=== PATIENT | male | born 1975 | race Caucasian/White ===

== ENCOUNTER 2018-01-10 23:03 | Emergency (ER) | payer OTHER ==
[~2018-01-10] VITALS: Ht 172.7 cm; Wt 77.1 kg
[~2018-01-10 23:03] MED LIST: ADDERALL XR 2525 MG; CIALIS5 MG; CILOXAN5 ML OPHTHALMIC
[2018-01-10] MEDS ORDERED: KLONOPIN0.5 MG PO (23:17)
[2018-01-10 23:18] LABS: URINE BILIRUBIN NEGATIVE (Negative); URINE BLOOD NEGATIVE (Negative); URINE CLARITY CLEAR; URINE COLOR YELLOW; URINE GLUCOSE-RANDOM NEGATIVE (Negative); URINE KETONES NEGATIVE (Negative); URINE LEUKOCYTES-REFLEX NEGATIVE (Negative); URINE NITRITE-REFLEX NEGATIVE (Negative); URINE PROTEIN NEGATIVE (Negative); URINE UROBILINOGEN 0.2 E.U./dl (0.2-1.0)
[2018-01-10 23:21] LABS: ABSOLUTE BASOPHILS 0.1 thou/uL (0.0-0.2); ABSOLUTE EOSINOPHILS 0.1 thou/uL (0.0-0.7); ABSOLUTE LYMPHOCYTES 3.8 thou/uL (0.8-5.3); ABSOLUTE MONOCYTES 0.8 thou/uL (0.0-1.2); HEMATOCRIT 46.5 % (42.0-52.0); HEMOGLOBIN 15.1 gm/dL (14.0-18.0); LYMPHOCYTES 32.1 %; MCH 26.1 pg (26.0-34.0); MCHC 32.6 g/dL (28.0-37.0); MCV 80.1 fL (80.0-100.0); MONOCYTES 6.6 %; MPV 8.3 fl. (7.2-11.1); NUCLEATED RBCS 0 /100WBC; PLATELET COUNT* 285 thou/uL (150-400); POLYS 59.3 %; RDW-CV 13.9 % (10.5-14.5); WBC 11.9 thou/uL (4.0-11.0)
[2018-01-10 23:27] LABS: AMP/METHAMP Negative (Negative); BARBITURATES Negative (Negative); BENZODIAZEPINES Negative (Negative); COCAINE Negative (Negative); METHADONE Negative (Negative); OPIATES Negative (Negative); PCP Negative (Negative); THC Negative (Negative)
[2018-01-10 23:30] LABS: CALCIUM 8.4 mg/dL (8.5-10.1); POTASSIUM 3.6 mmol/L (3.5-5.1)
[2018-01-10 23:35] LABS: ALBUMIN 3.7 g/dL (3.4-5.0); TOTAL BILIRUBIN 0.4 mg/dL (<0.1-1.0); TOTAL PROTEIN 8.1 g/dL (6.4-8.2)
[2018-01-10 23:36] LABS: ACETAMINOPHEN < 2 ug/mL (10-30); ALCOHOL 142 mg/dL (<10); SALICYLATE < 2.8 mg/dL (2.8-20.0)
[2018-01-11 03:32] VITALS: BP 104/74
--- NOTE | 2018-01-11 11:01 | EKG ---
[place] [address] ELECTROCARDIOGRAM REPORT Name: WILFREDO RAPHAEL Room: [facility]#: [id number] Admission: 01/10/18 Attend Phys: Discharge: 01/11/18 Date of : 73 Report #: [id number] THIS REPORT FOR: //name// [facility] ED Test Date: 2018-01-10 Test Time: 23:31:48 Pat Name: WILFREDO RAPHAEL Department: Room: Gender: M Showroom Salesperson: MARY ANN : 1975 Requested By: Wilmar Mcdonald Order Number: [id number] MD: Chad Minaya Measurements Intervals [place] Rate: 47 P: 57 W[place]: 127 QRS: 63 QRSD: 96 T: 26 QT: 451 QTc: 399 Interpretive Statements Sinus bradycardia No previous ECG available for comparison Electronically Signed On 01-11-2018 11:01:20 CDT by Chad Minaya [email or web address] <ELECTRONICALLY SIGNED> By: Chad Minaya MD, [facility] 01/11/18 1101 [id number] Chad Minaya MD, FACC /EPI
--- NOTE | 2018-01-11 11:08 | EKG ---
[place] [address] ELECTROCARDIOGRAM REPORT Name: WILFREDO RAPHAEL Room: [facility]#: [id number] Admission: 01/10/18 Attend Phys: Discharge: 01/11/18 Date of : 73 Report #: [id number] THIS REPORT FOR: //name// [facility] ED Test Date: 2018-01-11 Test Time: 02:48:40 Pat Name: WILFREDO RAPHAEL Department: Room: Gender: M Workers Compensation Claims Analyst: ABY : 1975 Requested By: Wilmar Mcdonald Order Number: [id number] MD: Chad Minaya Measurements Intervals [place] Rate: 44 P: 62 VT: 130 QRS: 66 QRSD: 93 T: 19 QT: 441 QTc: 378 Interpretive Statements Sinus bradycardia Probable left atrial enlargement Electronically Signed On 01-11-2018 11:08:05 CDT by Chad Minaya [email or web address] <ELECTRONICALLY SIGNED> By: Chad Minaya MD, [facility] 01/11/18 1108 [id number] Chad Minaya MD, FACC /EPI
== END 2018-01-11 03:22 | disposition home or self-care (01) ==
LOC: M.ERS 23:03
PROVIDERS: Emergency Medicine Emergency Medical Services
DX: F10.129 Alcohol abuse with intoxication, unspecified (principal); R07.9 Chest pain, unspecified; Y90.6 Blood alcohol level of 120-199 mg/100 ml